=== PATIENT | female | born 1965 | race Caucasian/White ===

== ENCOUNTER 2018-08-02 21:11 | Emergency (ER) | payer MEDICAID, OTHER ==
[~2018-08-02] VITALS: Ht 154.9 cm; Wt 74.8 kg
[~2018-08-02 21:11] MED LIST: METF-350; RISP1TAB1
[2018-08-02 21:18] VITALS: BP 140/86
--- NOTE | 2018-08-02 21:20 | NUR ---
TO LOBBY A/W BED, VSRosaura, BRISEIDA, SHARI NOTED
[2018-08-02 21:48] LABS: APPEARANCE,URINE HAZY (CLEAR)
[2018-08-02 21:49] LABS: BILIRUBIN,URINE NEGATIVE (NEGATIVE); BLOOD, URINE 3+ (NEGATIVE); COLOR,URINE RED (YELLOW); LEUKOCYTE ESTERASE ,URINE 2+ (NEGATIVE); NITRITE, URINE NEGATIVE (NEGATIVE); UGLUCOSE NEGATIVE (NEGATIVE)
[2018-08-02 21:55] LABS: RBC,URINE TOO NUMEROUS TO COUN /HPF (0-5)
[2018-08-02 21:56] LABS: WBC,URINE 20-60 /HPF (0-5)
[2018-08-02 21:57] LABS: URINE AMORPHOUS URATE 1+ /HPF (None Seen)
--- NOTE | 2018-08-03 00:46 | NUR ---
PT AMBULATED TO BED 3
[2018-08-03] MEDS ORDERED: PHENAZOPYRIDINE 100 MG TAB PO ONE (00:55)
[2018-08-03] MEDS ORDERED: cefTRIAXone 1,000 MG in LIDOCAINE MPF 1% - 5 mL VIAL 2.1 ML IM ONE (00:55)
--- NOTE | 2018-08-03 01:15 | NUR ---
PT PRESENTING WITH ED WITH CHIEF C/O BURNING UPON URINATION FOR THE LAST COUPLE OF DAYS. PT HAS PMH OF DM AND HYPERLIPIDEMIA. PT AAOX4 FOLLOWING COMMANDS. DENIES CP/SOB LUNGS CLEAR EVEN AND UNLABORED. ABD SOFT NON DISTENDED. PT VOIDING NORMAL. LAST MENSTRUAL PERIOD X3 YEARS AGO. NO OTHER S/S OF ACUTE DISTRESS NOTED. ALL SAFETY PRECAUTIONS INPLACE. BED LOCKED AND IN LOWEST POSITION.
--- NOTE | 2018-08-03 02:15 | NUR ---
Patient discharged with v/s stable. Written and verbal after care instructions given and explained. Patient alert, oriented and verbalized understanding of instructions. Ambulatory with steady gait. All questions addressed prior to discharge. ID band removed. Patient advised to follow up with PMD. Rx of PYRIDIUM AND MACROBID given. Patient educated on indication of medication including possible reaction and side effects. Opportunity to ask questions provided and answered.
[2018-08-03 02:19] VITALS: BP 125/80
== END 2018-08-03 02:15 | disposition home or self-care (01) ==
LOC: MED 21:11
DX: R30.9 Painful micturition, unspecified (principal); E11.9 Type 2 diabetes mellitus without complications; Z79.84 Long term (current) use of oral hypoglycemic drugs; Z79.899 Other long term (current) drug therapy
CPT/HCPCS: 81001; 87086; 87186; 96372; 99284; J0696; J2001

== ENCOUNTER 2022-03-27 13:30 | Emergency (ER) | payer MEDICAID, OTHER ==
[~2022-03-27] VITALS: Ht 154.9 cm; Wt 75.7 kg
[2022-03-27 13:38] VITALS: BP 151/83
[2022-03-27] MEDS ORDERED: CEPH-588 PO (14:22)
[2022-03-27] MEDS ORDERED: ATOR10TA51 PO (14:22)
[2022-03-27] MEDS ORDERED: METF-1274 PO (14:22)
[2022-03-27] MEDS ORDERED: BENA10TA81 PO (14:22)
[2022-03-27 14:29] LABS: APPEARANCE,URINE CLEAR (CLEAR); BILIRUBIN,URINE NEGATIVE (NEGATIVE); BLOOD, URINE TRACE-I (NEGATIVE); COLOR,URINE YELLOW (YELLOW); LEUKOCYTE ESTERASE ,URINE TRACE (NEGATIVE); NITRITE, URINE NEGATIVE (NEGATIVE); UGLUCOSE NEGATIVE (NEGATIVE)
--- NOTE | 2022-03-27 14:47 | NUR ---
NO NURSING INTERVENTIONS PROVIDED
--- NOTE | 2022-03-27 14:48 | NUR ---
Patient discharged with v/s stable. Written and verbal after care instructions ABOUT URINARY TRACT INFECTION given and explained. Patient alert, oriented and verbalized understanding of instructions. Ambulatory with steady gait. All questions addressed prior to discharge. ID band removed. Patient advised to follow up with PMD. Rx of ATORVASTIN, BENAZEPRIL, KEFLEX, GLUCOPHAGE given. Patient educated on indication of medication including possible reaction and side effects. Opportunity to ask questions provided and answered.
== END 2022-03-27 14:48 | disposition home or self-care (01) ==
LOC: MED 13:30
DX: N39.0 Urinary tract infection, site not specified (principal); Z76.0 Encounter for issue of repeat prescription; E11.9 Type 2 diabetes mellitus without complications; I10 Essential (primary) hypertension; E78.5 Hyperlipidemia, unspecified; Z79.4 Long term (current) use of insulin; Z79.899 Other long term (current) drug therapy
CPT/HCPCS: 81003; 99283

== ENCOUNTER 2023-02-24 16:25 | Emergency (ER) | payer MEDICAID, OTHER ==
[~2023-02-24] VITALS: Ht 154.9 cm; Wt 72.1 kg
[~2023-02-24 16:25] MED LIST changes: +ATOR10TA51 PO; +BENA10TA81 PO; +CEPH-588 PO; +METF-1274 PO
[2023-02-24 17:41] VITALS: BP 117/65
--- NOTE | 2023-02-24 18:12 | NUR ---
AFTER EKG PERFORMED SHOWED TO DR. CATHIE MD APPROVED FOR PT. TO WAIT IN LOBBY FOR DISPOSITION
[2023-02-24] MEDS ORDERED: ASPIRIN 325 MG TAB PO ONE (19:00)
[2023-02-24] MEDS ORDERED: ASPIRIN 325 MG TAB ONE (20:05)
[2023-02-24 20:15] LABS: BASOPHILS % (AUTO) 0.3 % (0.0-2.0); EOSINOPHILS # (AUTO) 0.1 K/uL (0-0.4); EOSINOPHILS % (AUTO) 0.5 % (0.0-4.0); HEMATOCRIT 39.8 % (36-48); LYMPHOCYTES # (AUTO) 2.5 K/uL (2.5-16.5); LYMPHOCYTES % (AUTO) 21.9 % (20.5-51.1); MEAN CORPUSCULAR HEMOGLOBIN 29 pg (27-31); MEAN CORPUSCULAR HGB CONC 33 g/dL (33-37); MEAN CORPUSCULAR VOLUME 89.6 fL (80-94); MONOCYTES # (AUTO) 0.7 K/uL (0.8-1.0); NEUTROPHILS # (AUTO) 8.3 K/uL (1.8-7.7); NEUTROPHILS % (AUTO) 71.3 % (42.2-75.2); PLATELET COUNT (AUTO) 274 K/uL (140-450); RED BLOOD CELL COUNT(AUTO) 4.44 MIL/uL (4.20-5.40); RED CELL DISTRIBUTION WIDTH 14.5 % (11.6-13.7); WHITE BLOOD COUNT (AUTO) 11.6 K/uL (4.8-10.8)
[2023-02-24 20:46] LABS: ALBUMIN 3.7 g/dL (3.4-5.0); ANION GAP 12.6 (8-16); CARBON DIOXIDE 27.5 mmol/L (21-32); CREATININE 0.9 mg/dL (0.6-1.3); POTASSIUM 4.1 mmol/L (3.5-5.1)
[2023-02-25 00:48] VITALS: BP 109/72
--- NOTE | 2023-02-25 00:48 | NUR ---
2ND TROP DRAWN AND SENT TO LAB. VS RETAKEN WNL. DENIES CP OR SOB
--- NOTE | 2023-02-25 02:00 | NUR ---
PT CLEARED FOR D/C BY DR. SALMON. ALL D/C INSTRUCTIONS VERBALIZED TO PT BY DR. SALMON.
== END 2023-02-25 02:00 | disposition home or self-care (01) ==
LOC: MED 16:25
DX: R07.2 Precordial pain (principal); I48.91 Unspecified atrial fibrillation; E11.9 Type 2 diabetes mellitus without complications; I10 Essential (primary) hypertension; Z90.49 Acquired absence of other specified parts of digestive tract; Z98.890 Other specified postprocedural states; Z79.899 Other long term (current) drug therapy; Z79.2 Long term (current) use of antibiotics
CPT/HCPCS: 36415; 71045; 80053; 83880; 84484; 85025; 85379; 93005; 99285

== ENCOUNTER 2023-07-29 02:00 | Emergency (ER) | payer MEDICAID ==
[~2023-07-29] VITALS: Ht 154.9 cm; Wt 69.9 kg
[2023-07-29 02:05] VITALS: BP 121/81; PULSE 63; RESP 18; TEMP 97.6; O2SAT 100
[2023-07-29] MEDS ORDERED: ONDANSETRON 4 MG/2 ML VIAL IVP ONE (02:35)
[2023-07-29] MEDS ORDERED: NACL 0.9% 1,000 ML IV SCH (02:35)
[2023-07-29] MEDS ORDERED: MORPHINE SULFATE 4 MG/ML SYR IVP ONE ×2 (02:35→03:35)
[2023-07-29 02:44] LABS: APPEARANCE,URINE CLEAR (CLEAR); BILIRUBIN,URINE NEGATIVE (NEGATIVE); BLOOD, URINE NEGATIVE (NEGATIVE); COLOR,URINE YELLOW (YELLOW); LEUKOCYTE ESTERASE ,URINE NEGATIVE (NEGATIVE); NITRITE, URINE NEGATIVE (NEGATIVE); PH,URINE 6.5 (5.0-9.0); PROTEIN,URINE NEGATIVE (NEGATIVE); UGLUCOSE 3+ (NEGATIVE); UROBILINOGEN,URINE 0.2 EU/dL (0.2 - 1)
[2023-07-29 02:44] LABS: BASOPHILS # (AUTO) 0.1 K/uL (0.00-0.22); BASOPHILS % (AUTO) 0.4 % (0.0-2.0); EOSINOPHILS # (AUTO) 0.1 K/uL (0-0.4); EOSINOPHILS % (AUTO) 0.4 % (0.0-4.0); HEMATOCRIT 38.1 % (36-48); HEMOGLOBIN 12.4 g/dL (12.0-16.0); LYMPHOCYTES # (AUTO) 2.7 K/uL (2.5-16.5); LYMPHOCYTES % (AUTO) 19.6 % (20.5-51.1); MEAN CORPUSCULAR HEMOGLOBIN 29 pg (27-31); MEAN CORPUSCULAR HGB CONC 33 g/dL (33-37); MEAN CORPUSCULAR VOLUME 88.6 fL (80-94); MONOCYTES # (AUTO) 0.8 K/uL (0.8-1.0); MONOCYTES % (AUTO) 6.1 % (1.7-9.3); NEUTROPHILS % (AUTO) 73.5 % (42.2-75.2); PLATELET COUNT (AUTO) 252 K/uL (140-450); RED CELL DISTRIBUTION WIDTH 14.9 % (11.6-13.7); WHITE BLOOD COUNT (AUTO) 13.6 K/uL (4.8-10.8)
[2023-07-29] MEDS ORDERED: IBUP-2213 PO (03:00)
[2023-07-29] MEDS ORDERED: ACET-8905 PO (03:00)
[2023-07-29] MEDS ORDERED: OMEP40EC24 PO (03:00)
[2023-07-29] MEDS ORDERED: ONDA8TAB87 PO (03:00)
[2023-07-29] MEDS ORDERED: DICYCLOMINE HCL LIQUID 20 MG, ALUMINUM HYD/MAG/SIMETHICONE 30 ML, LIDOCAINE VISCOUS 2% ... PO ONE ×3 (03:00)
[2023-07-29 03:02] LABS: ALANINE AMINOTRANSFERASE 33 U/L (12-78); ALBUMIN 3.8 g/dL (3.4-5.0); ALKALINE PHOSPHATASE 129 U/L (50-136); ANION GAP 13.3 (8-16); ASPARTATE AMINOTRANSFERASE 20 U/L (15-37); CARBON DIOXIDE 28.2 mmol/L (21-32); CHLORIDE 102 mmol/L (98-107); CREATININE 0.8 mg/dL (0.6-1.3); GFR ARICAN-AMERICAN 95 mL/min (>90); GFR NON ARICAN-AMERICAN 79 mL/min (>90); GLUCOSE 218 mg/dL (74-106); LIPASE 48 U/L (16-77); POTASSIUM 3.5 mmol/L (3.5-5.1); SODIUM SERUM 140 mmol/L (136-145); TOTAL BILIRUBIN 0.6 mg/dL (0.0-1.0); TOTAL PROTEIN, SERUM 7.5 g/dL (6.4-8.2); UREA NITROGEN, BLOOD 17 mg/dL (7-18)
[2023-07-29] MEDS ORDERED: ALUMINUM HYD/MAG/SIMETHICONE 30 ML UDC ONE (03:02)
[2023-07-29] MEDS ORDERED: DICYCLOMINE HCL LIQUID 10 MG/5 ML UDC ONE (03:02)
[2023-07-29 04:00] VITALS: BP 120/79; PULSE 67; RESP 18; TEMP 97.6; O2SAT 100
== END 2023-07-29 04:00 | disposition home or self-care (01) ==
LOC: MED 02:00
DX: R10.13 Epigastric pain (principal); R11.2 Nausea with vomiting, unspecified; I48.91 Unspecified atrial fibrillation; E11.9 Type 2 diabetes mellitus without complications; I10 Essential (primary) hypertension; Z90.49 Acquired absence of other specified parts of digestive tract; Z98.890 Other specified postprocedural states; Z79.899 Other long term (current) drug therapy; Z79.1 Long term (current) use of non-steroidal anti-inflammatories (NSAID); Z79.2 Long term (current) use of antibiotics
CPT/HCPCS: 36415; 80053; 81003; 83690; 84484; 85025; 93005; 96361; 96374; 96375; 96376; 99284; J2270; J2405; J7030

== ENCOUNTER 2023-08-14 17:59 | Emergency (ER) | payer MEDICAID ==
[~2023-08-14] VITALS: Ht 154.9 cm; Wt 69.9 kg
[~2023-08-14 17:59] MED LIST changes: +ACET-8905 PO; +IBUP-2213 PO; +OMEP40EC24 PO; +ONDA8TAB87 PO
[2023-08-14 18:48] VITALS: BP 153/93; PULSE 64; RESP 18; TEMP 96.1; O2SAT 100
[2023-08-14] MEDS ORDERED: MORPHINE SULFATE 10 MG/ML VIAL IVP ONE (20:35)
[2023-08-14] MEDS ORDERED: NACL 0.9% 1,000 ML IV ONE (20:35)
[2023-08-14] MEDS ORDERED: ONDANSETRON 4 MG/2 ML VIAL IVP ONE (20:35)
[2023-08-14 20:57] LABS: BASOPHILS % (AUTO) 0.5 % (0.0-2.0); EOSINOPHILS # (AUTO) 0.3 K/uL (0-0.4); EOSINOPHILS % (AUTO) 2.5 % (0.0-4.0); HEMATOCRIT 40.1 % (36-48); HEMOGLOBIN 13.2 g/dL (12.0-16.0); LYMPHOCYTES # (AUTO) 4.2 K/uL (2.5-16.5); LYMPHOCYTES % (AUTO) 41.5 % (20.5-51.1); MEAN CORPUSCULAR HEMOGLOBIN 29 pg (27-31); MEAN CORPUSCULAR HGB CONC 33 g/dL (33-37); MEAN CORPUSCULAR VOLUME 89.1 fL (80-94); MONOCYTES # (AUTO) 1.1 K/uL (0.8-1.0); MONOCYTES % (AUTO) 10.5 % (1.7-9.3); NEUTROPHILS # (AUTO) 4.5 K/uL (1.8-7.7); PLATELET COUNT (AUTO) 271 K/uL (140-450); WHITE BLOOD COUNT (AUTO) 10.1 K/uL (4.8-10.8)
[2023-08-14 21:10] LABS: INR 0.98 (0.8-1.2); PROTHROMBIN TIME 10.3 secs (10.8-13.4)
[2023-08-14 21:14] LABS: ALBUMIN 3.7 g/dL (3.4-5.0); ANION GAP 9.4 (8-16); CALCIUM 8.9 mg/dL (8.5-10.1); CARBON DIOXIDE 30.4 mmol/L (21-32); CREATININE 0.8 mg/dL (0.6-1.3); POTASSIUM 3.8 mmol/L (3.5-5.1); TOTAL BILIRUBIN 1.1 mg/dL (0.0-1.0); TOTAL PROTEIN, SERUM 7.7 g/dL (6.4-8.2)
[2023-08-14 21:15] VITALS: BP 142/83; PULSE 86; RESP 16; O2SAT 98
[2023-08-14 21:19] LABS: LACTIC ACID 1.1 mmol/L (0.4-2.0)
[2023-08-14] MEDS ORDERED: HYDR-5191 PO (22:09)
[2023-08-14] MEDS ORDERED: NAPR-54 PO (22:09)
[2023-08-14] MEDS ORDERED: FLUCONAZOLE 100 MG TAB PO ONE (22:10)
== END 2023-08-14 22:28 | disposition home or self-care (01) ==
LOC: MED 17:59
DX: K80.50 Calculus of bile duct without cholangitis or cholecystitis without obstruction (principal); K80.20 Calculus of gallbladder without cholecystitis without obstruction; I11.9 Hypertensive heart disease without heart failure; E11.9 Type 2 diabetes mellitus without complications; Z79.4 Long term (current) use of insulin; Z79.899 Other long term (current) drug therapy
CPT/HCPCS: 36415; 76705; 80053; 83605; 83690; 85025; 85610; 85730; 87040; 96361; 96374; 96375; 99285; J2270; J2405; J7030; Q0092

== ENCOUNTER 2023-08-28 20:40 | Emergency (ER) | payer MEDICAID ==
[~2023-08-28] VITALS: Ht 154.9 cm; Wt 69.9 kg
[~2023-08-28 20:40] MED LIST changes: +HYDR-5191 PO; +NAPR-54 PO
[2023-08-28 20:57] VITALS: BP 127/67; PULSE 62; RESP 16; TEMP 98.1; O2SAT 97
[2023-08-28 22:00] VITALS: O2SAT 97
== END 2023-08-29 03:15 | disposition home or self-care (01) ==
LOC: MED 20:40
DX: I80.8 Phlebitis and thrombophlebitis of other sites (principal); I11.9 Hypertensive heart disease without heart failure; E11.9 Type 2 diabetes mellitus without complications; Z79.4 Long term (current) use of insulin; Z79.899 Other long term (current) drug therapy
CPT/HCPCS: 81002; 81025; 93971; 99284; Q0092